=== PATIENT | female | born 1985 | race Caucasian/White ===

== ENCOUNTER 2025-03-12 14:03 | Emergency (ER) | payer OTHER, SELFPAY ==
[2025-03-12 14:28] VITALS: BP 116/78
[2025-03-12] MEDS: RABAVERT RABIES VACC W-DILUENT 2.5 UNIT IM (17:06)
--- NOTE | 2025-03-12 17:07 | ED.GENMED ---
History of Present Illness
General
Chief Complaint: Rabies
Source: patient
Exam Limitations: none
Time Seen by Provider: 03/12/25 15:06
Nursing documentation reviewed up to this point in time: agreed with
History of Present Illness
History of Present Illness:
Patient is a 39-year-old female who presents to the emergency department for rabies vaccination after exposure to bat at home. Patient states that Saturday morning a bat was found in their living room. They are unsure how long the bat was
inside at home. The night prior she was sleeping upstairs however both her and son were sleeping on the couch downstairs after finishing a movie.
They were able to put the bat into a bag and had it tested at the [facility] for rabies however results came back inconclusive.
There was no known bite or scratch from the bat. No prior rabies vaccination series. No history of vaccination reactions.
No other concerns today.
Past History
Past History
ED Past Medical History: Asthma
ED Past Surgical History: Other (oral)
Social History
Tobacco: Non-smoker
Alcohol: None
Drug: None
Living: with family
Review of Systems
Review of Systems
Allergies reviewed?: Yes
All Other Systems: ROS reviewed and negative except as documented in HPI and ROS
Phy Exam
Physical Exam
Physical Exam:
Vitals: Patient's vital signs are stable. Afebrile
General: Patient is well appearing, no acute distress
Skin: Warm and dry, no rashes or lesions
Head: Normocephalic, atraumatic
Throat: Protecting airway
Neck: Normal ROM.
Cardiac: Regular rate
Pulm: No apparent respiratory distress
Abdomen: Nondistended
Extremities: No evidence of cyanosis or edema
Neuro: Grossly intact
Psychiatric: Normal affect.
Course
Orders/Labs/Results
Orders:
Orders
03/12/25 15:33
Rabies Immune Globulin/Pf [HyperRAB] 1,430 unit IM NOW STA
03/12/25 15:45
Rabies Vaccine (Pcec)/Pf [Rabavert Rabies Vacc W-Diluent] 2.5 unit IM .ONCE ONE
Vital Signs
Initial and Last Documented VS:
Initial Vital Signs
Temp Pulse Resp BP Pulse Ox
98.1 F 85 18 116/78 98
03/12/25 14:28 03/12/25 14:28 03/12/25 14:28 03/12/25 14:28 03/12/25 14:28
Last Documented Vital Signs
Temp Pulse Resp BP Pulse Ox
98.1 F 85 18 116/78 98
03/12/25 14:28 03/12/25 14:03/12/25 14:03/12/25 14:03/12/25 17:07
MDM/Problems Addressed
Differential Diagnosis Includes:
Not limited to: Need for rabies prophylaxis, etc.
MDM/Problems Addressed:
39-year-old female presenting for rabies vaccination series after bat exposure at home this past Saturday. No known bite or scratch however health department testing of bat resulted inconclusive for rabies. No prior history of rabies vaccination
series. Shared decision making utilized with patient/parents and decision was made to pursue vaccination series.
Rabies immunoglobulin and dose number one of the rabies vaccine administered in the emergency department today. Patient tolerated injections well. Lengthy discussion regarding remainder of vaccination series which can be done in emergency
department or infusion clinic. Strict return precautions discussed. Patient stable for discharge.
Chronic conditions affecting care:
N/A
Acute Exacerbation and/or Progression of Chronic Illness:
N/A
*Pulse Oximetry
SaO2: 98
Oxygen Mode of Delivery: Room air
Patient hypoxic: no
*EKG
Interpreted by ED Provider?: NA
*Case Management Assistant Interpretation
Rate: Case Management Assistant- N/A
*Critical Care Note
Total Time (30-74mins, 75-104mins- exclusive of procedures): Not Applicable
ED Attending Note
-
Portions of this chart may have been created with voice recognition software.� Occasional wrong word or��sound alike� substitutions may have occurred due to the inherent limitations of voice recognition software.
Discharge Plan
Departure
Patient Disposition: Home (Routine Discharge)
Date of Disposition: 03/12/25
Time of Disposition: 17:07
Patient with high blood pressure during this ER visit?: No
Condition: Good
Discharge Problem:
Rabies, need for prophylactic vaccination against
Instructions: Rabies
Prescriptions:
New
RabAvert (PF) 2.5 unit suspension for reconstitution
2.5 unit IM ONCE Qty: 3 0RF
Rx Instructions:
Inject 1mL on 03/15/25, 03/19/25, and 03/26/25
No Action
doxycycline monohydrate 100 mg capsule
100 mg PO BID Qty: 20 0RF
mupirocin 2 % ointment
1 applic topical TID Qty: 50 0RF
doxycycline hyclate 100 mg capsule
100 mg PO BID Qty: 20 0RF
prednisone 50 mg tablet
50 mg PO DAILY Qty: 5 0RF
Referrals:
Carolina Akers PA-C [Family Provider, [facility]]
Stand Alone Forms: Rabies Vaccine Post Exp Dosing
Activity Restrictions/Additional Instructions:
RETURN TO THE EMERGENCY DEPARTMENT WITH ANY SIGNIFICANT REDNESS, SWELLING, OR PAIN AROUND INJECTION SITE, NEW RASH, OR ANY OTHER CONCERNS
- You were given the rabies immunoglobulin and dose #1 of the rabies vaccination in the emergency department today. As discussed�this is a 4 dose series and you will require additional doses on 03/15/25, 03/19/25, and 03/26/25. It is important to
complete this series. These can be given in the infusion clinic or the emergency department. The infusion clinic will likely be closed on holidays and may not accommodate pediatric patients. Please hold onto the prescription you were given today
as you may require it at the infusion clinic.
- Follow-up with your PCP as needed for further evaluation/management
Monitor your symptoms closely and return to the emergency department with any acute worsening/new symptoms or any other concerns
Interventions
Interventions:
*Risk Screen - Suicide Last Done: 03/12/25 14:13
*Neglect/Abuse Screening Last Done: 03/12/25 14:13
*Nursing Disposition Last Done: 03/12/25 17:58
Discharge Date and Time
Discharge Date/Time: 03/12/25 17:58
Print Language: SOMALI
== END 2025-03-12 17:58 | disposition home or self-care (01) ==
LOC: EMR 14:03
PROVIDERS: EMERGENCY PHYSICIAN Emergency Medicine; FAMILY PHYSICIAN Physician Assistant Medical
DX: Z23 Encounter for immunization (principal); Z20.3 Contact with and (suspected) exposure to rabies; Z29.14 Encounter for prophylactic rabies immune globulin
CPT/HCPCS: 99284; 90471; 96372; 90375; 90675

== ENCOUNTER 2025-03-15 08:02 | Emergency (ER) | payer OTHER, SELFPAY ==
[2025-03-15 08:06] VITALS: BP 131/82
--- NOTE | 2025-03-15 08:35 | ED.GENMED ---
History of Present Illness
General
Chief Complaint: Rabies
Source: patient
Time Seen by Provider: 03/15/25 08:09
History of Present Illness
History of Present Illness:
39-year-old female presenting to the ER for second rabies vaccine. Patient is without any physical concerns at this time. Will return to the ER in 4 more days for third vaccine.
Past History
Past History
ED Past Medical History: Asthma
ED Past Surgical History: Other (oral)
Social History
Tobacco: Non-smoker
Alcohol: None
Drug: None
Personal:
Living: with family
Review of Systems
Review of Systems
All Other Systems: ROS reviewed and negative except as documented in HPI and ROS
Phy Exam
Physical Exam
Physical Exam:
GENERAL: Alert , in no apparent distress
EYE: conjunctiva clear
Head: Normocephalic atraumatic
NECK: Supple,
ENT: mmm.
LUNGS: no acute respiratory distress
NEUROLOGICAL: Alert and oriented
SKIN: Warm and dry, skin intact.
MUSCULOSKELETAL: well perfused.
PSYCH: Normal and appropriate interaction.
Scores
Heart Failure Risk
Heart Failure Risk Score: Not Applicable
Heart Score for Chest Pain Patients
STEMI patient?: Not applicable
Withdrawal Assessment of Alcohol
Withdrawal Assessment Completed?: Not applicable
Course
Orders/Labs/Results
Orders:
Orders
03/15/25 08:45
Rabies Vaccine (Pcec)/Pf [Rabavert Rabies Vacc W-Diluent] 2.5 unit IM .ONCE ONE
Vital Signs
Initial and Last Documented VS:
Initial Vital Signs
Temp Pulse Resp BP Pulse Ox
97.8 F 80 18 131/82 97
03/15/25 08:06 03/15/25 08:06 03/15/25 08:06 03/15/25 08:06 03/15/25 08:06
Last Documented Vital Signs
Temp Pulse Resp BP Pulse Ox
97.8 F 80 18 131/82 97
03/15/25 08:06 03/15/25 08:06 03/15/25 08:06 03/15/25 08:06 03/15/25 08:36
MDM/Problems Addressed
MDM/Problems Addressed:
Patient presenting for second rabies vaccine. They will return to the ER in 4 days for third vaccine. Aware of return precautions. Stable for discharge.
*Pulse Oximetry
SaO2: 97
Oxygen Mode of Delivery: Room air
Patient hypoxic: no
*Critical Care Note
Total Time (30-74mins, 75-104mins- exclusive of procedures): Not Applicable
ED Attending Note
-
Portions of this chart may have been created with voice recognition software.� Occasional wrong word or��sound alike� substitutions may have occurred due to the inherent limitations of voice recognition software.
Discharge Plan
Departure
Patient Disposition: Home (Routine Discharge)
Date of Disposition: 03/15/25
Time of Disposition: 08:35
Patient with high blood pressure during this ER visit?: No
Discharge Problem:
Encounter for immunization
Prescriptions:
No Action
doxycycline monohydrate 100 mg capsule
100 mg PO BID Qty: 20 0RF
mupirocin 2 % ointment
1 applic topical TID Qty: 50 0RF
doxycycline hyclate 100 mg capsule
100 mg PO BID Qty: 20 0RF
prednisone 50 mg tablet
50 mg PO DAILY Qty: 5 0RF
RabAvert (PF) 2.5 unit suspension for reconstitution
2.5 unit IM ONCE Qty: 3 0RF
Rx Instructions:
Inject 1mL on 03/15/25, 03/19/25, and 03/26/25
Referrals:
Carolina Akers PA-C [Family Provider, Family Practice]
Stand Alone Forms: Rabies Vaccine Post Exp Dosing
Interventions
Interventions:
*Risk Screen - Suicide Last Done: 03/15/25 08:06
*General Assessment Last Done: 03/15/25 08:06
Discharge Date and Time
Print Language: SLOVENIAN
[2025-03-15] MEDS: RABAVERT RABIES VACC W-DILUENT 2.5 UNIT IM (09:12)
== END 2025-03-15 09:18 | disposition home or self-care (01) ==
LOC: EMR 08:02
PROVIDERS: EMERGENCY PHYSICIAN Emergency Medicine; FAMILY PHYSICIAN Physician Assistant Medical
DX: Z20.3 Contact with and (suspected) exposure to rabies (principal); Z23 Encounter for immunization
CPT/HCPCS: 99281; 90471; 90675

== ENCOUNTER 2025-03-19 07:40 | Emergency (ER) | payer OTHER, SELFPAY ==
[2025-03-19 07:47] VITALS: BP 122/74
--- NOTE | 2025-03-19 08:02 | ED.GENMED ---
History of Present Illness
General
Chief Complaint: Rabies
Source: patient
Exam Limitations: none
Time Seen by Provider: 03/19/25 07:59
Nursing documentation reviewed up to this point in time: agreed with
History of Present Illness
History of Present Illness:
39-year-old female here for her third in a series of 4 rabies vaccines.
Past History
Past History
ED Past Medical History: Asthma
ED Past Surgical History: Other (oral)
Social History
Tobacco: Non-smoker
Alcohol: None
Drug: None
Personal:
Living: with family
Review of Systems
Review of Systems
Allergies reviewed?: Yes
All Other Systems: ROS reviewed and negative except as documented in HPI and ROS
Phy Exam
Physical Exam
Physical Exam:
PHYSICAL EXAMINATION:
General: no apparent distress, not acutely ill
Neuro: alert and oriented.
Psychiatric: well kept. interactive and cooperative
Musculoskeletal: Moves with ease
Skin: Warm, pink.
Course
Orders/Labs/Results
Orders:
Orders
03/19/25 08:45
Rabies Vaccine (Pcec)/Pf [Rabavert Rabies Vacc W-Diluent] 2.5 unit IM .ONCE ONE
Vital Signs
Initial and Last Documented VS:
Initial Vital Signs
Temp Pulse Resp BP Pulse Ox
98.3 F 72 16 122/74 98
03/19/25 07:47 03/19/25 07:47 03/19/25 07:47 03/19/25 07:47 03/19/25 07:47
Last Documented Vital Signs
Temp Pulse Resp BP Pulse Ox
98.3 F 72 16 122/74 98
03/19/25 07:47 03/19/25 07:47 03/19/25 07:47 03/19/25 07:47 03/19/25 08:06
*Pulse Oximetry
SaO2: 98
Oxygen Mode of Delivery: Room air
Patient hypoxic: not evaluated
*Critical Care Note
Total Time (30-74mins, 75-104mins- exclusive of procedures): Not Applicable
ED Attending Note
-
Portions of this chart may have been created with voice recognition software.� Occasional wrong word or��sound alike� substitutions may have occurred due to the inherent limitations of voice recognition software.
Discharge Plan
Departure
Patient Disposition: Home (Routine Discharge)
Date of Disposition: 03/19/25
Time of Disposition: 08:03
Patient with high blood pressure during this ER visit?: No
Discharge Problem:
Need for immunization against rabies
Prescriptions:
No Action
doxycycline monohydrate 100 mg capsule
100 mg PO BID Qty: 20 0RF
mupirocin 2 % ointment
1 applic topical TID Qty: 50 0RF
doxycycline hyclate 100 mg capsule
100 mg PO BID Qty: 20 0RF
prednisone 50 mg tablet
50 mg PO DAILY Qty: 5 0RF
RabAvert (PF) 2.5 unit suspension for reconstitution
2.5 unit IM ONCE Qty: 3 0RF
Rx Instructions:
Inject 1mL on 03/15/25, 03/19/25, and 03/26/25
Referrals:
Carolina Akers PA-C [Family Provider, Family Practice]
Activity Restrictions/Additional Instructions:
As we discussed, return on 03/26 for your next Rabies Vaccine
Interventions
Interventions:
*Risk Screen - Suicide Last Done: 03/19/25 07:47
*General Assessment Last Done: 03/19/25 09:18
*Neglect/Abuse Screening Last Done: 03/19/25 07:47
*ED- Fall Risk Assessment Last Done: 03/19/25 09:18
*Nursing Disposition Last Done: 03/19/25 09:18
Discharge Date and Time
Discharge Date/Time: 03/19/25 09:18
Print Language: BELGIAN
[2025-03-19] MEDS: RABAVERT RABIES VACC W-DILUENT 2.5 UNIT IM (08:57)
== END 2025-03-19 09:18 | disposition home or self-care (01) ==
LOC: EMR 07:40
PROVIDERS: EMERGENCY PHYSICIAN Student in an Organized Health Care Education/Training Program; FAMILY PHYSICIAN Physician Assistant Medical
DX: Z20.3 Contact with and (suspected) exposure to rabies (principal); Z23 Encounter for immunization; J45.909 Unspecified asthma, uncomplicated
CPT/HCPCS: 99281; 90471; 90675

== ENCOUNTER 2025-03-27 08:01 | Emergency (ER) | payer OTHER, SELFPAY ==
[2025-03-27 08:11] VITALS: BP 124/86
--- NOTE | 2025-03-27 08:27 | ED.GENMED ---
History of Present Illness
General
Chief Complaint: Rabies
Source: patient
Time Seen by Provider: 03/27/25 08:24
History of Present Illness
History of Present Illness:
39-year-old female presenting to the ER for fourth and final rabies series vaccine. Patient without any concerns at this time.
Past History
Past History
ED Past Medical History: Asthma
ED Past Surgical History: Other (oral)
Social History
Tobacco: Non-smoker
Alcohol: None
Drug: None
Personal:
Living: with family
Review of Systems
Review of Systems
All Other Systems: ROS reviewed and negative except as documented in HPI and ROS
Phy Exam
Physical Exam
Physical Exam:
GENERAL: Alert , in no apparent distress
EYE: conjunctiva clear
Head: Normocephalic atraumatic
NECK: Supple,
ENT: mmm.
LUNGS: no acute respiratory distress
NEUROLOGICAL: Alert and oriented
SKIN: Warm and dry, skin intact.
MUSCULOSKELETAL: well perfused.
PSYCH: Normal and appropriate interaction.
Scores
Heart Failure Risk
Heart Failure Risk Score: Not Applicable
Heart Score for Chest Pain Patients
STEMI patient?: Not applicable
Withdrawal Assessment of Alcohol
Withdrawal Assessment Completed?: Not applicable
Course
Orders/Labs/Results
Orders:
Orders
03/27/25 08:45
Rabies Vaccine (Pcec)/Pf [Rabavert Rabies Vacc W-Diluent] 2.5 unit IM .ONCE ONE
Vital Signs
Initial and Last Documented VS:
Initial Vital Signs
Temp Pulse Resp BP Pulse Ox
98.1 F 89 16 124/86 98
03/27/25 08:11 03/27/25 08:11 03/27/25 08:11 03/27/25 08:11 03/27/25 08:11
Last Documented Vital Signs
Temp Pulse Resp BP Pulse Ox
98.1 F 89 16 124/86 98
03/27/25 08:11 03/27/25 08:11 03/27/25 08:11 03/27/25 08:11 03/27/25 08:27
MDM/Problems Addressed
MDM/Problems Addressed:
39-year-old female presenting to the ER for fourth and final rabies series. Patient without any concerns at this time. Aware of return precautions.
*Pulse Oximetry
SaO2: 98
Oxygen Mode of Delivery: Room air
Patient hypoxic: no
*Critical Care Note
Total Time (30-74mins, 75-104mins- exclusive of procedures): Not Applicable
ED Attending Note
-
Portions of this chart may have been created with voice recognition software.� Occasional wrong word or��sound alike� substitutions may have occurred due to the inherent limitations of voice recognition software.
Discharge Plan
Departure
Patient Disposition: Home (Routine Discharge)
Date of Disposition: 03/27/25
Time of Disposition: 08:27
Patient with high blood pressure during this ER visit?: No
Discharge Problem:
Encounter for immunization
Prescriptions:
No Action
doxycycline monohydrate 100 mg capsule
100 mg PO BID Qty: 20 0RF
mupirocin 2 % ointment
1 applic topical TID Qty: 50 0RF
doxycycline hyclate 100 mg capsule
100 mg PO BID Qty: 20 0RF
prednisone 50 mg tablet
50 mg PO DAILY Qty: 5 0RF
RabAvert (PF) 2.5 unit suspension for reconstitution
2.5 unit IM ONCE Qty: 3 0RF
Rx Instructions:
Inject 1mL on 03/15/25, 03/19/25, and 03/26/25
Interventions
Interventions:
*Risk Screen - Suicide Last Done: 03/27/25 08:11
*Neglect/Abuse Screening Last Done: 03/27/25 08:11
Discharge Date and Time
Print Language: MAORI
[2025-03-27] MEDS: RABAVERT RABIES VACC W-DILUENT 2.5 UNIT IM (08:53)
== END 2025-03-27 09:00 | disposition home or self-care (01) ==
LOC: EMR 08:01
PROVIDERS: EMERGENCY PHYSICIAN Emergency Medicine; FAMILY PHYSICIAN Physician Assistant Medical
DX: Z20.3 Contact with and (suspected) exposure to rabies (principal); Z23 Encounter for immunization; J45.909 Unspecified asthma, uncomplicated
CPT/HCPCS: 99281; 90471; 90675